=== PATIENT | male | born 1965 | race Caucasian/White ===

== ENCOUNTER → 2021-04-24 | Outpatient (CLI) | payer OTHER ==
[~2021-04-24] MED LIST: GADOTERATE 5 MMOL/10ML VIAL. INT ART ONE; IOHEXOL 300 MG/ML 50 ML VIAL. INT ART ONE; LIDOCAINE 1% Multi-Dose 20 ML VIAL. ID ONE
--- NOTE | 2021-04-24 15:37 | KCIC ---
EXAM: Bilateral hip joint injection WITH Fluoroscopic guidance DATE: 04/24/2021 12:53 PM CLINICAL HISTORY: Reason: BILATERAL HIP PAIN COMPARISON: None pertinent TECHNIQUE: The patient was informed of the indications and alternatives for this procedure as well as risks and benefits. No immediate contraindication identified. The patient provided informed, written consent. Laterality was confirmed by the entire team following a time out. Following initial left hip joint localization, a suitable area was sterilely prepped and draped. Loca l anesthesia was administered with 1% xylocaine. With intermittent fluoroscopic observation, a 22-gau ge spinal needle was advanced into the left hip joint sheath/capsule with confirmation of intra-synov ial position with infusion of less than 1 cc iodinated contrast. Subsequent infusion 14 mL solution c ontaining 10 cc saline, 5 cc lidocaine 1%, 5 cc Isovue and 0.1 cc gadolinium. Hemostasis with local p ressure. Local clinical exam negative for immediate complication. The patient was then transported to MRI. Following return from the MRI scanner, the right hip joint was localized and a suitable area was ster ilely prepped and draped. Local anesthesia was administered with 1% xylocaine. With intermittent fluo roscopic observation, a 22-gauge spinal needle was advanced into the right hip joint sheath/capsule w ith confirmation of intra-synovial position with infusion of less than 1 cc iodinated contrast. Subse quent infusion 14 mL solution containing 10 cc saline, 5 cc lidocaine 1%, 5 cc Isovue and 0.1 cc gado linium. Hemostasis with local pressure. Local clinical exam negative for immediate complication. Patient informed of precautionary measures after intra-synovial injection of anesthetic. Patient expr essed understanding. Performing Physicians: Dr. Venus Matthews Blood Loss: 0 cc Total Fluoroscopy time: 21 seconds Total spot images taken: 0 Total last image hold images saved: 2 IMPRESSION: Successful intra-synovial injection bilateral hip joint with gadolinium contrast pre-MRI per clinical request. Electronically signed by: Francisco Matthews MD (04/24/2021 3:34 PM) [id number] CUSTOM FIELD 1
--- NOTE | 2021-04-24 16:43 | KCIC ---
EXAM: MR arthrogram Left hip DATE: 04/24/2021 4:19 PM INDICATION: symptoms COMPARISON: 04/24/2021 TECHNIQUE: Multiplanar, multisequence MR imaging of the left hip was performed following the administ ration of intra-articular gadolinium contrast. FINDINGS: Fluid: Iatrogenic increase joint fluid without synovial nodularity or intra-articular loose body. Ne gative fluid distention of the greater trochanteric bursa. Ligaments: Ligamentum teres is intact. Negative nodularity or thickening. Morphology: Normal proximal femoral angle, 137 degrees. Normal acetabular anteversion. Normal alpha angle, 46 degrees. Some mild osseous prominence at the left femoral head/neck junction Articular cartilage: Articular cartilage preserved throughout. Negative divot or eccentric thinning. Acetabular labrum: Contrast/fluid signal is seen extending through the base of the labrum at the ante rior superior labrum from the 10-11:00 position Periarticular tendons: Regional tendinous attachments are intact including hamstring, iliopsoas and g luteus medius tendons. Bone marrow: Bone marrow signal is normal. Negative fracture or AVN. Visceral pelvis: Incomplete survey of marginal visceral structures of the pelvis. Grossly normal with out mass lesion or free intraperitoneal fluid. Negative large pelvic wall adenopathy. IMPRESSION: 1. Fluid signal at the anterior superior labrum from the 10:00-11:00 position is suspicious for nond isplaced labral tear. No paralabral cyst is seen. 2. There is prominence of the femoral head/neck junction which may predispose to cam-type SYDNEY. Howev er, normal alpha angle. Electronically signed by: Francisco Matthews MD (04/24/2021 4:41 PM) [id number]
--- NOTE | 2021-04-24 17:00 | KCIC ---
EXAM: MR arthrogram right hip DATE: 04/24/2021 4:45 PM INDICATION: Reason: RULE OUT FEMORAL ACETABULAR IMPINGEMENT / Spl. Instructions: / History: RIGHT HI P PAIN COMPARISON: None available. TECHNIQUE: Multiplanar, multisequence MR imaging of the right hip was performed following the adminis tration of intra-articular gadolinium contrast. FINDINGS: Fluid: Iatrogenic increase joint fluid without synovial nodularity or intra-articular loose body. Ne gative fluid distention of the greater trochanteric bursa. Ligaments: Ligamentum teres is intact. Negative nodularity or thickening. Morphology: Normal proximal femoral angle, 136 degrees. Normal acetabular anteversion. Normal alpha angle, 50 degrees. Small osseous bump/prominence at the femoral head/neck junction. Center edge angle measures 32 degrees. Articular cartilage: Articular cartilage preserved throughout. Negative divot or eccentric thinning. Acetabular labrum: Contrast extends through the anterior superior labrum from the 9:30-11:00 position of the anterior superior labrum. Periarticular tendons: Regional tendinous attachments are intact including hamstring, iliopsoas and g luteus medius tendons. Bone marrow: Bone marrow signal is normal. No fracture or osteonecrosis. Visceral pelvis: Incomplete survey of marginal visceral structures of the pelvis. Grossly normal with out mass lesion or free intraperitoneal fluid. Negative large pelvic wall adenopathy. IMPRESSION: 1. Anterior superior labral tear with contrast extending through the 9:30-11:00 position. No paralab ral cyst is identified. 2. Small osseous bump/prominence at the femoral head/neck junction may predispose to cam-type SYDNEY Electronically signed by: Francisco Matthews MD (04/24/2021 4:58 PM) [id number]
== END | disposition home or self-care (01) ==
LOC: KCIC 12:44
PROVIDERS: ATTEND Physician Assistant
DX: M25.552 Pain in left hip (principal); M25.551 Pain in right hip; Z88.0 Allergy status to penicillin
CPT/HCPCS: 27093; 73719; 73722; 77002; A9575; J3490; Q9967